=== PATIENT | male | born 1955 | race Caucasian/White ===

== ENCOUNTER 2016-05-02 19:06 | Inpatient (IN) | payer SELFPAY ==
[2016-05-02] VITALS (10 sets, daily range): BP systolic 112–187; BP diastolic 67–95; PULSE 81–152; RESP 14–17; O2SAT 96–100
[~2016-05-02] VITALS: Ht 186.7 cm; Wt 105.6 kg
[~2016-05-02 19:06] MED LIST: AMLO2.5T PO; CLOP75TA3 PO; METO25TA6 PO; MULT-1073 PO; SIMV20TA4 PO
[2016-05-02] MEDS ORDERED: Diltiazem 5 mg/mL 5 mL Inj ONE (19:28)
[2016-05-02] MEDS ORDERED: Diltiazem 5 mg/mL 5 mL Inj IVPUSH ONE (19:35)
[2016-05-02] MEDS: Diltiazem 5 mg/mL 5 mL Inj IVPUSH PRN ×3 (19:43→21:06)
[2016-05-02] MEDS: Diltiazem Inj 125 MG in 0.9% Sodium Chloride 100 ML, Pharmacy To Mix 1 EA IV SCH (19:51)
--- NOTE | 2016-05-02 19:54 | DRSVH ---
PROCEDURE: X-RAY CHEST ONE VIEW, PORTABLE ([id number]) INDICATIONS: CP TECHNIQUE: One view of the chest was acquired. COMPARISON: None. FINDINGS: Surgical changes and devices: None. Lungs and pleura: No pleural effusions or pneumothorax. Lungs are clear. Mediastinum: Mediastinal contours appear normal. Heart size is normal. Bones and chest wall: No suspicious bony lesions. Overlying soft tissues appear unremarkable. IMPRESSION: No acute process. Dictated by: Marie Rogers M.D. on 05/02/2016 at 19:52 Approved by: Marie Rogers M.D. on 05/02/2016 at 19:52
[2016-05-02 19:57] LABS: BASOPHILS % (AUTO) 0.4 % (0-3); EOSINOPHILS % (AUTO) 1.2 % (0-5); Mean Corpuscular Hemoglobin 20.6 pg (27.0-35.0); Mean Corpuscular Volume 69.6 fL (81-100); NEUTROPHILS % (AUTO) 62.2 % (40-74); Platelet Count 507 bil/L (150-400)
[2016-05-02 20:28] LABS: TROPONIN T < 0.010 ug/L (0.0-0.011)
[2016-05-02 20:34] LABS: Magnesium 2.1 mg/dL (1.6-2.6)
[2016-05-02] MEDS ORDERED: ASPI-973 PO (20:46)
[2016-05-02] MEDS ORDERED: AMLO5TAB2 PO (20:46)
[2016-05-02] MEDS ORDERED: METO50TA3 PO (20:46)
--- NOTE | 2016-05-02 20:46 | ED.REPORT ---
HPI-Chest Pain 40 and Over Date of Service May 02, 2016 ED Provider: Lew Chadwick DO A 60 year old male with medical history including hypertension, hyperlipidemia, peripheral vascular disease, and CAD s/p cardiac catheterization (2014) presents to the ED with mid chest pain onset 1700 today. Associated symptoms include bilateral arm numbness (L>R), diaphoresis, and mild shortness of breath. He took ASA at onset but the pain did not resolve. In triage he was found to have a rapid irregularly irregular heart rhythm and was immediately brought back to a room. The patient ran out of his metoprolol two days ago and has not taken it since. Nursing Notes Stated Complaint: HEART PROBLEMS Chief Complaint: Chest Pain Nursing Notes Reviewed: Yes Allergies: Coded Allergies: No Known Allergies (Unverified , 05/02/16) Scheduled Amlodipine (Amlodipine) 5 Mg Tablet 5 MG PO DAILY Aspirin (Aspirin) 81 Mg Tablet 81 MG PO DAILY Metoprolol Tartrate (Metoprolol Tartrate) 50 Mg Tablet 50 MG PO BID Multivits-Min/FA/Lycopene/Lut (Centrum Silver Tablet) 1 Each Tablet 1 EACH PO DAILY Simvastatin (Simvastatin) 20 Mg Tablet 60 MG PO HS General Time Seen by MD: 19:21 Chief Complaint Chest pain Hx Obtained From: Patient Arrived By: Walk-in Sudden in Onset?: Yes Onset Occurred: 1 - 4 hours ago Symptom Duration: Since onset Location: : Chest left: Chest right Quality: Painful Severity: Current: Moderate Severity: Maximum: Moderate Associated with: Reports: Diaphoresis, Numbness/Tingling, Shortness of Breath, Denies: Fever Pertinent Negative: Relieved by nothing Context Related History: Reports: Acute coronary syndrome, Hypertension Recent Healthcare: No recent doctor visit Similar Sx Previous: Yes Past Medical History Past Medical History Right inguinal hernia Hypertension Hyperlipidemia "clot in heart" - the pt was placed on Plavix CAD Peripheral vascular disease Liver disease Fracture of ankle, wrist, collar bone Past Surgical History Cardiac catheter 2014 Family History noncontributory Smoking History Current Every Day Smoker Social History Alcohol Use: Denies alcohol use Other Social History: Local resident Ambulatory Status Independent Review of Systems Review of Systems Note: + rapid irregularly irregular heart rhythm Constitutional: Denies: Fever Respiratory: Reports: Shortness of breath (Mild) Cardiovascular: Reports: Chest pain Skin: Reports Diaphoresis Neurologic: Reports: Numbness (Bilateral arms L>R) Complete sys rev & neg: except as marked. Physical Exam Initial Vital Signs Vital Signs (First) Date Time Temp Pulse Resp B/P Pulse Ox O2 Delivery O2 Flow Rate FiO2 05/02/16 19:08 36.8 116 16 187/95 100 Room Air Initial VS: Reviewed Head / Eyes: Atraumatic, Normocephalic ENT: Conjunctiva normal, No scleral icterus Neck: Supple, Full range of motion Skin: Warm, Dry, No cyanosis Neurologic: Alert, Oriented, Nonfocal Psychiatric: Mood/affect normal, Behavior normal, Normal thought content General/Constitutional: Awake, Alert Respiratory / Chest: Breath sounds NL, Breath sounds = bilat, No respiratory distress Cardiovascular: Heart sounds NL Heart Rate / Rhythm: Positive: Irreg irregular rhythm, Tachycardia Abdomen: Soft, Non-tender Lower Extremity / Pelvis / MS: Inspection NL, No edema Interpretation & Diagnostics Lab Results Interpretation Result Diagram: 05/02/16194505/02/161945 Test 05/02/16 19:46 05/02/16 20:41 White Blood Count 9.5th/mm3 (3.8-10.1) Red Blood Count 4.47mil/mm3 (4.40-5.80) Hemoglobin 9.2g/dL (13.8-17.2) Hematocrit 31.1% (41.0-50.0) Mean Corpuscular Volume 69.6fL (81-100) Mean Corpuscular Hemoglobin 20.6pg (27.0-35.0) Mean Corpuscular Hemoglobin Concent 29.6% (32.0-37.0) Red Cell Distribution Width 16.2% (12.3-15.4) Platelet Count 507bil/L (150-400) Neutrophils (%) (Auto) 62.2% (40-74) Lymphocytes (%) (Auto) 26.0% (14-46) Monocytes (%) (Auto) 10.0% (4-12) Eosinophils (%) (Auto) 1.2% (0-5) Basophils (%) (Auto) 0.4% (0-3) Sodium Level 139mEq/L (134-144) Potassium Level 3.7mEq/L (3.5-5.2) Chloride Level 103mEq/L (97-108) Carbon Dioxide Level 21mmol/L (18-29) Blood Urea Nitrogen 20mg/dL (6-24) Creatinine 0.94mg/dL (0.76-1.27) Estimat Glomerular Filtration Rate 87mL/min (>59) Glucose Level 161mg/dL (60-99) Calcium Level 9.4mg/dL (8.5-10.1) Magnesium Level 2.1mg/dL (1.6-2.6) Total Bilirubin 0.2mg/dL (0.0-1.2) Aspartate Amino Transf (AST/SGOT) 20U/L (0-50) Alanine Aminotransferase (ALT/SGPT) 16U/L (0-44) Alkaline Phosphatase 67U/L (25-160) Troponin T < 0.010ug/L (0.0-0.011) Total Protein 7.0g/dL (6.4-8.4) Albumin 4.0g/dL (3.4-5.0) Thyroid Stimulating Hormone (TSH) 2.020uIU/mL (0.450-4.500) Hold Choi Top Tube Received (Received) Hold Urine Received (Received) Pulse Oximetry Interpretation Pulse Oximetry: Pulse Ox normal (96%), On room air ECG Interpretation ECG Interpretation: Atrial fibrillation rate 151 Posterior infarct, recent Time: 19:27 Interpreted by: ED physician ECG Interpretation: Atrial fibrillation rate 113 Abnormal R-wave progression, early transition Time: 21:46 Interpreted by: ED physician Rhythm Strip Interpretation : Rhythm Strip Interpretation: Narrow complex irregularly irregular rhythm, tachycardic at 160 Time: 19:20 Rhythm Strip Interpretation: Interpreted by me X-Ray Chest Interpretation Chest Xray Interpretation: IMPRESSION: No acute process. Dictated by: Marie Rogers M.D. on 05/02/2016 at 19:52 View: Portable, 1 view Interpretation / Wet Read by: Interpret - Radiologist Re-Eval/Medical Decision Med Decision/Clinical Course 60-year-old male presents in atrial fibrillation with rapid ventricular response. Evidently he was at work today when he first felt ill. He could feel his heart pounding and this led to an ache in his chest and his arm started to tingle. He took some aspirin and tried to shake it off however the symptoms persisted. He took his pulse and it felt irregular and that prompted him to be seen. He does not have a history of atrial fibrillation. He does not have a history of pulmonary embolism. He does not have a history of aortic dissection. He does have coronary artery disease, hypertension and dyslipidemia. No stroke. Awake alert in moderate distress due to the rapid irregular pulse. His pulse was roughly 160-170. This was causing significant discomfort. He was vitally stable however. IV Cardizem followed by Cardizem drip infused. Heart rate came down to 110. He was given his oral dose of evening metoprolol. His CHADS@VASC score is commensurate with anticoagulation. Will be managed by the hospitalist service. Serial EKGs confirmed A. fib without any evidence of acute myocardial infarction. Her troponin was negative. Chest x-ray was normal without evidence of dissection. Pulmonary emboli felt to be less likely. He did not have any shortness of breath. He has not been hypoxic. He has no signs or symptoms of DVT. The differential diagnosis of new onset atrial fibrillation is broad and will be addressed by the hospitalist service on inpatient basis. Patient was admitted in stable condition. Source of Hx: Old records Time of Eval: 20:06 Patient Status: Condition improved Re-Evaluation/Progress Note: Patient rechecked. Time of Eval: 20:34 Patient Status: Condition improved Re-Evaluation/Progress Note: Patient rechecked. Discussed patient's case with his . Time of Eval: 21:01 Patient Status: Condition improved Re-Evaluation/Progress Note: Discussed with patient x-ray results, diagnosis, and plan for admit. Patient agrees with plan for care and all questions were addressed. Time of Eval: 21:38 Re-Evaluation/Progress Note: Patient rechecked. Consultation : Referral / Consult Name: Abrahan Perdomo MD Consulted With: Hospitalist Call Returned at: 21:06 Lotus Notes Administrator: Agrees with eval, Agrees with plan, Accepts admit Counseled Regarding: Diagnosis, Need for admission Discharge & Departure Primary Impression: Atrial fibrillation with rapid ventricular response Disposition: ADMITTED TO HOSPITAL Discharge Condition All VS Reviewed: Yes Condition: Stable Referrals: NOPCP (PCP) Crit Care Except Billable Proc Time Spent: 30-74 minutes Services Performed: Patient management by me, Time spent at bedside, Reviewing test results, Reviewing imaging, Discussing patient care, Documentation in record, Time with fam/surrogate Scribe Attestation Portions of this note were transcribed by Haley Reza. I, Dr. Chadwick, personally performed the history, physical exam, and medical decision-making; I reviewed and confirmed the accuracy of the information in the transcribed note. Signed by: Giuseppe Griggs, 05/02/2016, 23:00 Lew Chadwick DO May 02, 2016 20:46 HALEY REZA May 02, 2016 21:16
[2016-05-02] MEDS ORDERED: Alum-Mag Hydrox-Simeth 30 mL Suspension PO PRN (21:15)
[2016-05-02] MEDS ORDERED: Polyethylene Glycol (PEG) 17 Gm Powder PO PRN (21:15)
[2016-05-02] MEDS ORDERED: Ondansetron 2 mg/mL 2 mL Inj IVPUSH PRN (21:15)
[2016-05-02] MEDS: 0.9% Sodium Chloride 1,000 ML IV SCH (22:13)
[2016-05-02 22:49] LABS: INR 0.9 ratio
--- NOTE | 2016-05-02 23:09 | PCM.HPMED ---
Subjective Date of Service May 02, 2016 Primary Provider: Admitting Physician: Abrahan Perdomo MD Primary Care Physician: Jose Attending Physician: Abrahan Perdomo MD Chief Complaint: Chest Pain History of Present Illness: Mr. Alaniz is a 60 year old male with a history of hypertension, hyperlipidemia, PVD, CAD with cath in 2014 who presented to the ED with substernal chest pain that occurred during work earlier today. He reports feeling diaphoretic with numbness radiating down both arms, and shortness of breath that improved after 45 minutes after resting and taking an Aspirin. He denies any associated lightheadedness, SOB, palpitations, N/V, and denies any history of thyroid disease. He reports that he has been having some intermittent chest pain 2-3 months ago, but states that his Stone Layer only doubled his Metoprolol and did not assess it further. Since March, he has been chest pain free until today. He reports he had a flu like illness that began 1 month ago and lasted 2- 3 weeks. He states his symptoms have since resolved and denies any fevers or cough. He also reports that he ran out of his Metoprolol 2 days ago. His Stone Layer is Dr. Carlson in [place]. At the ED, he was noted to be in Atrial fibrillation with rate in the 160s. He was started on a Diltiazem gtt for rate control and his symptoms resolved. Of note, patient reports that he has been sober and clean for the past 10 years. He reports that he was a very heavy drinker and used heroine and MJ daily. Review of Systems: 12 point review of system is negative, except as stated in HPI. 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 HEENT - PERRLA, EOMI. Membranes pink and moist. Neck - Supple without tenderness, full ROM. Cardiac - Irregularly irregular rhythm, tachycardic. No m/g/r, no carotid bruits. Lungs - CTAB, no w/r/r Abd - Soft, NT/ND, + BS, no masses. Extremities - No cyanosis, clubbing, edema. Normal cap refill. Neuro - A&Ox3. CN 2-12 intact. Muscle strength 5/5 in all extremities, reflexes 2/4 throughout. Psych - Normal affect, appropriate responses. Skin - Warm, dry. No rashes or bruising noted. Lab and Diagnostics Result Diagram: 05/02/16194505/02/161945 X-Rays, CTs and MRIs X-RAY CHEST ONE VIEW, PORTABLE ([id number]) IMPRESSION: No acute process. Dictated by: Marie Rogers M.D. on 05/02/2016 at 19:52 12-lead ECG 12 Lead ECG in ED Atrial fibrillation, rate 151 Posterior Infarct Assessment & Plan Mr. Alaniz is a 60 year old male with multiple CAD risk factors including HTN, HLD, PVD here for acute substernal chest pain that has since resolved. Patient is admitted for new onset Afib w/ RVR. #Atrial fibrillation with RVR, new onset, present on admission, stable Likely multifactorial, but risk factors include history of alcohol and cocaine abuse, CAD, abrupt metoprolol withdrawal, multiple cardiac risk factors , iron deficiency anemia, and recent illness Troponin negative x 1, will continue to trend Will place patient Telemetry monitoring Will continue Diltiazem gtt per protocol that was started in the ED, with goal of HR < 100 PT/INR ordered, pending; CHADSVasc score = 2, recommend anticoagulation other than his daily 81mg ASA , currently on Heparin SQ for DVT prophylaxis TSH ordered, pending ECHO in AM, NPO after midnight in anticipation of any procedures Possible cardioversion depending on what ECHO shows due to first episode and <48h duration Consult cardiology in AM #CAD s/p cath in 2014, POA Continue patient's home medications #Iron Deficiency Anemia, chronic, present on admission Patient is on iron but does not take it regularly, H/H 9. with an MCV of 69.2; denies blood loss from anywhere. Trend H/H, transfuse if drops below 7 and is symptomatic, type and screen Iron Sulfate 325mg BID #Hypertension, POA, stable Continue amlodipine 5mg, but consider switching to Lisinopril for maximal benefit Will hold Metoprolol while patient is on Diltiazem drip #Hyperlipidemia, POA, stable Will switch to Atorvastatin QHS Lipid panel pending #Hyperglycemia, POA Patient denies history of diabetes HA1c ordered #Tobacco Dependence, POA Patient reports 1 ppd since he was [age], total of 40 pack years Cessation advised Nicotine patch PRN #H/o Drug Abuse and Alcohol Abuse Cocaine and Alcohol abuse could contribute to an Cardiomyopathy Clean and Sober x 10 years Discussed with patient and he would like HIV screening Tylenol prn pain/fever Bowel Regimen prn constipation Pain Evaluation: Adequate Pain Control Attending Statement The patient was seen and examined together with Dr. Leong on 05/02 and I agree with the history, exam and plan as outlined in the note above. Patient could be a candidate for newer anticoagulation agents. I will leave it to the day team to discuss this options with the patient Anthony Leong DO May 02, 2016 23:09 Abrahan Perdomo MD May 03, 2016 01:26
[2016-05-03] VITALS (12 sets, daily range): BP systolic 95–135; BP diastolic 64–87; PULSE 64–112; RESP 16; O2SAT 94–99
--- NOTE | 2016-05-03 00:47 | NUR ---
ADMIT NOTE Pt arrived to [facility] 3001 approx 2200, pt alert and oriented. Pt able to ambulate, slow, somewhat unsteady. Pt arrived w/ Cardizem gtt infusing. IVF administered. Resident/Admitting MDs arrived to assess pt. Pt denies pain at this time. Pt placed on remote telemetry via MP30 monitor, layout technician notified. Pt watched admit welcome DVD. Med rec completed in ER. Frequent VS being obtained. Pt resting comfortably in bed. Continue to monitor. Call light in reach. Intentional rounding.
--- NOTE | 2016-05-03 03:35 | NUR ---
TELEMETRY Approx 0300, pt converted to SR from A.Fib, per cv tech. HR 60s. BPs stable. Pt sleeping. Cardizem gtt decreased to 10mg/hr from 15mg/hr approx 0330. notified of rhythm change, orders rec'd to wean pt off of Cardizem gtt. Continue to monitor. Addendum: 05/03/16 at 043 by CECIL BOB RN At 0430, Cardizem gtt decreased to 5mg/hr, as VSS, pt remains in SR. Continue to monitor. Addendum: 05/03/16 at 0604 by CECIL BOB RN Approx 529, Cardizem gtt stopped. Discontinued from EMAR. Pt VSS. Continue to monitor.
[2016-05-03] MEDS: Diltiazem Inj 125 MG in 0.9% Sodium Chloride 100 ML, Pharmacy To Mix 1 EA IV SCH (04:26)
[2016-05-03 05:53] LABS: BASOPHILS % (AUTO) 0.4 % (0-3); EOSINOPHILS % (AUTO) 1.8 % (0-5); MONOCYTES % (AUTO) 12.4 % (4-12); Mean Corpuscular Hemoglobin 20.6 pg (27.0-35.0); Mean Corpuscular Volume 70.3 fL (81-100); NEUTROPHILS % (AUTO) 58.3 % (40-74); Platelet Count 490 bil/L (150-400)
[2016-05-03] MEDS: 0.9% Sodium Chloride 1,000 ML IV SCH ×2 (07:12→08:29)
[2016-05-03] MEDS: Heparin 5,000 Unit/mL Inj SUBQ SCH ×2 (08:31→17:00)
--- NOTE | 2016-05-03 13:25 | DRSVH ---
[facility] [address] [place] [address] Echocardiogram Report Name: ABBY SAL TStudy Juan e: 05/03/2016 Height: 73.5 in Hospital Exam Location: [facility] Weight: 232 lb Gender: Male BSA: 2.3 m2 : 1955 Age: 60 yrs BP: 115/78 mm Hg Reason For Study: Atrial fibrillation Ordering Physician: MARIANNE MENDOSA Performed By: Sophia Zheng Referring Physician: MARIANNE MENDOSA Interpretation Summary The left ventricle is normal in size. Left ventricular systolic function is normal. The ejection fraction is estimated to be 55-60%. There are no focal wall motion abnormalities. Assessment of diastolic parameters indicates a relaxation abnormality of the left ventricle, consistent with normal filling pressures. The right ventricle is normal in size and function. The right ventricular systolic pressure is estimated at 31 mmHg assuming a right atrial pressure of 3 mm Hg. The left atrial size is normal. Right atrial size is normal. There is no significant valvular heart disease. The aortic root is normal size. Procedure: A two-dimensional transthoracic echocardiogram with color flow and Doppler was performed. The study quality was technically adequate. There is no prior echocardiogram noted for this patient. The patient was in normal sinus rhythm during the exam. Left Ventricle: The left ventricle is normal in size. There is normal left ventricular wall thickness. Left ventricular systolic function is normal. The ejection fraction is estimated to be 55-60%. There are no focal wall motion abnormalities. Spectral Doppler of the mitral inflow yields an E/A ratio that is between 0.8 and 1.5. Assessment of diastolic parameters indicates a relaxation abnormality of the left ventricle, consistent with normal filling pressures. Right Ventricle: The right ventricle is normal in size and function. Atria: The left atrial size is normal. Right atrial size is normal. The interatrial septum is intact with no evidence for an atrial septal defect. Mitral Valve: The mitral valve leaflets appear normal. There is no evidence of stenosis, fluttering, or prolapse. There is trace mitral regurgitation. Aortic Valve: The aortic valve is trileaflet. The aortic valve opens well. There is mild aortic valve sclerosis. There is trace aortic regurgitation. Tricuspid Valve: The tricuspid valve is normal. There is trace tricuspid regurgitation. The right ventricular systolic pressure is estimated at 31 mmHg assuming a right atrial pressure of 3 mm Hg. Pulmonic Valve: The pulmonic valve leaflets are thin and pliable; valve motion is normal. There is trace pulmonic regurgitation. There is no significant valvular heart disease. Great Vessels: The aortic root is normal size. The ascending aorta is at the upper limits of normal in size. The aortic arch is at the upper limits of normal in size. The pulmonary artery is normal size. The IVC is of normal diameter and collapses greater than 50% with a sniff. This suggests a low right atrial pressure of 3 mm Hg. Pericardium/ Pleura There is no pericardial effusion. There is no pleural effusion. MMode/2D Measurements & Calculations LVIDd: 5.7 cm RA long axis LVOT diam: 2.1 cm LVIDs: 4.0 cm LA A2 area: 20.8 cm AoV Opening FS: 29.6 % LA A4 area: 21.2 cm RA area EPSS: 0.84 cm LA length (vol) Ao root diam IVSd: 0.92 cm : 18.2 cm LVPWd: 0.82 cm LA vol: 72.7 ml RA vol asc Aorta Diam LA vol index : 58.7 ml RA Ao Arch Diam (Prox : 25.5 mm2 Trans): 2.8 cm IVC diam: 1.7 cm LV joseph. diameter/BSA LV sys. diameter/BSA TAPSE: 2.3 cm (cm/m^2): 2.5 (cm/m^2): 1.8 Doppler Measurements & Calculations Ao V2 max MV E max memo MV E/A: 0.93 TR max memo : 174.5 cm/sec : 94.5 cm/sec Med Peak E' Memo : 266.2 cm/sec Ao max P.2 mmHg MV A max memo TR max PG Ao mean P.6 mmHg : 101.5 cm/sec E/E' med: 7.8 : 28.4 mmHg LVOT Max Memo Lat Peak E' Memo PA V2 max : 122.4 cm/sec : 102.0 cm/sec E/E' lat: 7.2 PA mean PG HIEN(I,D): 2.6 cm E/e' average: 7.5 : 2.4 mmHg sev ratio: 0.73 MV A dur: 0.13 sec MV dec time: 0.23 sec Ao V2 mean LV V1 max PG PA V2 mean : 120.7 cm/sec : 75.0 cm/sec Ao V2 VTI: 36.6 cm LV V1 VTI: 26.9 cmPA pr(Accel) : 25.8 mmHg HIEN(V,D): 2.5 cm2 HIEN indexed to BSA (cm^2/m^2): 1.1 Reading Physician:PM
--- NOTE | 2016-05-03 13:43 | NUR ---
Social Work-initial assessment: Data:See initial assessment. Pt is 60 y/o male who was admitted on 05/02/16 for AFIB per H&P. Pt does not have PCP or insurance. SW met with pt at bedside discuss discharge planning, SW role explained. Pt is alert and oriented x3. Pt resides at home with his where he remains independent with ADLs. Pt does not use any DME and drives. Pt has no HH or SNF history. Pt has no dredging inspector care insurance or VA benefits. SW discuss DPOA/ advanced directive, pt has never completed this and is not interested in information. SW discussed pt's lack of PCP and insurance. Pt states he ran out of money this month and let his insurance lapse. Pt plans on getting in touch with insurance once he is discharge. Pt declines any assistance with this. Pt also does not have PCP and is declining resources. SW provided pt with cherelle care application. Pt states his will provide transport home at discharge. SW provided pt with phone number and plan on white board in room. No anticipated discharge needs. SW will continue to follow if needs arise. Assessment:Pt who is independent at baseline. Plan:Pt to discharge home when medically stable via POV. Pt let his insurance lapse, he is working on getting this back in place. Pt declining any assistance or PCP resources. SW provided pt with cherelle care application.No anticipated discharge needs. SW will continue to follow if needs arise. TIAN Landaverde
--- NOTE | 2016-05-03 16:27 | NUR ---
TELE PT remains in NS in 60-70's, no reoccurrences of AFib, no ectopy per tele monitor. PT VS stable, been resting most of the day, waiting for cardiology consult. Pt denies SOB, denies chest pain. Pt up at bedside with short walks to restroom. Encouraged pt to deep breathe, turn and cough. Pt A & O x 3, call light at bedside, bed in low position. Pt anxious to go home. Re-assured pt in regards to consult, pt agreeable to plan.
--- NOTE | 2016-05-03 19:06 | PCM.CHPCAR ---
Consult Subjective Date of service May 03, 2016 Date of admit May 02, 2016 at 21:32 Provider Requesting Consult Requesting Provider: Anthony Leong DO Primary Care Physician Primary Care Provider: Jose Chief Complaint Chest pain History of Present Illness This is a 60-year-old male with history of coronary disease as per the patient. He states that back in June 2014 he proceeded with a nuclear stress test at [facility] which I do not have access to the report. As per the patient he "flunked the test" it was taken immediately to the emergency room. Apparently he did not have insurance he deferred a cardiac catheterization until September 2014. According to the patient he had a thrombus and was placed on Plavix. He did not receive any balloon angioplasty or stent as per the patient. The patient sees Dr. Carlson at [facility]. The patient has had complaints of recent episodes of chest discomfort. His metoprolol was increased to 50 mg twice a day. Apparently the patient recently had a upper respiratory infection for several weeks. The patient was at work yesterday started to have significant chest pressure. The patient took some aspirin and nitroglycerin and eventually after 45 minutes of resting his chest pain improved but he was still night at baseline. He decided to present to the emergency room at [facility]. In the emergency room his EKG revealed rapid atrial fibrillation with a heart rate about 150 bpm with some minor ST depressions. The patient was placed on intravenous diltiazem and eventually converted back to sinus rhythm around 3:30 this morning. Since then he has not had any recurrence episodes of chest pain and he feels pretty much back to his baseline. His severe troponins were negative. His EKG now shows normal sinus rhythm with normal ST segments. Review of Systems General: Denies: Energy Fatigue Ears, Nose, Mouth & Throat: Denies: Any hearing loss Epistaxis or hoarseness Respiratory: Denies: Orthopnea or PND Significant dyspnea Cardiovascular: Reports: Chest Discomfort Gastrointestinal: Denies: Ulcers or GI blood loss Genitourinary: Denies: Prostate symptoms Urinary symptoms Musculoskeletal: Denies: Significant myalgias Neurological: Denies: Any history of stroke/TIA symptoms Psychiatric: Denies: Anxiety Depression Endocrine: Denies: Heat or cold intolerance Integumentary: Denies: Any change in hair or nails PMH Past Medical History Hypertension Hyperlipidemia PVD CAD s/p cath 2014 Iron Deficiency Anemia Tobacco Dependence Liver Disease 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) Bedside Blood Glucose: 109 Scheduled Amlodipine (Amlodipine) 5 Mg Tablet 5 MG PO DAILY (Reported) Aspirin (Aspirin) 81 Mg Tablet 81 MG PO DAILY (Reported) Metoprolol Tartrate (Metoprolol Tartrate) 50 Mg Tablet 50 MG PO BID (Reported) Multivits-Min/FA/Lycopene/Lut (Centrum Silver Tablet) 1 Each Tablet 1 EACH PO DAILY (Reported) Simvastatin (Simvastatin) 20 Mg Tablet 60 MG PO HS (Reported) Discontinued Medications Amlodipine (Amlodipine) 2.5 Mg Tablet 2.5 MG PO DAILY (Reported) Clopidogrel Bisulfate (Plavix) 75 Mg Tablet 75 MG PO DAILY (Reported) Metoprolol Tartrate (Metoprolol Tartrate) 25 Mg Tablet 25 MG PO BID (Reported) Current Inpatient Medications Current Medications Diltiazem HCl/ Sodium Chloride/ Miscellaneous 125 ml @ 0 mls/hr Q0M IV Last administered on 05/03/16 04:26; Admin Dose 5 MLS/HR; Start 05/02/16 at 19:35; Stop 05/03/16 at 05:41; Status DC Diltiazem HCl 10 mg 10 mg Q15M PRN IVPUSH Last administered on 05/02/16 21:06 ; Admin Dose 10 MG; Start 05/02/16 at 19:35 Sodium Chloride 1,000 ml @ 100 mls/hr Q10H IV Last administered on 05/03/16 08 :29; Admin Dose 100 MLS/HR; Start 05/02/16 at 21:12 Al Hydrox/Mg Hydrox/Simethicone 30 ml Q6H PRN PO; Start 05/02/16 at 21:15 Ondansetron HCl 4 to 8 mg Q4H PRN IVPUSH; Start 05/02/16 at 21:15 Senna 17.2 mg BID PRN PO; Start 05/02/16 at 21:15 Polyethylene Glycol 17 gm DAILY PRN PO; Start 05/02/16 at 21:15 Acetaminophen 650 mg Q4H PRN PO; Start 05/02/16 at 21:15 Amlodipine Besylate 5 mg DAILY PO Last administered on 05/03/16 08:19; Admin Dose 5 MG; Start 05/03/16 at 08:30 Aspirin 81 mg DAILY PO Last administered on 05/03/16 08:20; Admin Dose 81 MG; Start 05/03/16 at 08:30 Atorvastatin Calcium 40 mg HS PO; Start 05/03/16 at 21:00 Heparin Sodium (Porcine) 5,000 unit Q8 SUBQ Last administered on 05/03/16 17:00 ; Admin Dose 5,000 UNIT; Start 05/03/16 at 08:30 Metoprolol Tartrate 50 mg BID PO Last administered on 05/03/16 08:19; Admin Dose 50 MG; Start 05/03/16 at 08:30 Allergies: Coded Allergies: No Known Allergies (Unverified , 05/02/16) Family History Family History CHF Social History Occupation: Cook Hx Alcohol Use: Yes (Hx of "12-16 beers/night, whiskey, sober 10 years")Hx Substance Use: Yes ("Cocaine, sober 10 years", denies use of needles)Hx Tobacco Use: Yes (1 ppd for 40 years) Smoking Status: Current Every Day Smoker (1 ppd) Living Arrangement: with Family Exam Vital Signs Vital Sign - Last Date Time Temp Pulse Resp B/P Pulse Ox O2 Delivery O2 Flow Rate FiO2 05/03/16 17:07 36.9 70 16 135/85 99 Room Air Intake and Output 05/02/16 05/02/16 05/03/16 Cumulative From/Thru 15:00 23:00 07:00 05/02/16 19:08 - 05/03/16 06:39 Intake Total 1290 ml 1290 ml Output Total 350 ml 350 ml Balance 940 ml 940 ml Intake Oral 560 ml 560 ml IV Total 730 ml 730 ml Output Urine Total 350 ml 350 ml # Voids 1 1 # Bowel Movements 1 1 Objective GENERAL: This is a well-nourished, well-developed patient, in no apparent distress. HEAD: Atraumatic. Normocephalic. No temporal or scalp tenderness. EYES: Pupils equal round and reactive. Extraocular motions intact. No scleral icterus. No injection or drainage. ENT: Nose without bleeding, purulent drainage or septal hematoma. Throat without erythema, tonsillar hypertrophy or exudate. Uvula midline. Airway patent. NECK: Trachea midline. No JVD or lymphadenopathy. Supple, nontender, no meningeal signs. CARDIOVASCULAR: Regular rate and rhythm without murmurs, gallops, or rubs. RESPIRATORY: Clear to auscultation. Breath sounds equal bilaterally. No wheezes , rales, or rhonchi. GASTROINTESTINAL: Abdomen soft, non-tender, nondistended. No hepato-splenomegaly , or palpable masses. No guarding. EXTREMITIES: No clubbing, cyanosis, or edema. No joint tenderness, effusion, or edema noted. No calf tenderness. Negative Homans sign bilaterally. BACK: Nontender without deformity or crepitance. No flank tenderness. Lab and Diagnostics Labs CBC Test 05/03/16 05:12 White Blood Count 7.2th/mm3 (3.8-10.1) Red Blood Count 4.08mil/mm3 (4.40-5.80) Hemoglobin 8.4g/dL (13.8-17.2) Hematocrit 28.7% (41.0-50.0) Mean Corpuscular Volume 70.3fL (81-100) Mean Corpuscular Hemoglobin 20.6pg (27.0-35.0) Mean Corpuscular Hemoglobin Concent 29.3% (32.0-37.0) Red Cell Distribution Width 16.3% (12.3-15.4) Platelet Count 490bil/L (150-400) Neutrophils (%) (Auto) 58.3% (40-74) Lymphocytes (%) (Auto) 27.0% (14-46) Monocytes (%) (Auto) 12.4% (4-12) Eosinophils (%) (Auto) 1.8% (0-5) Basophils (%) (Auto) 0.4% (0-3) CMP Test 05/02/16 19:46 05/03/16 05:12 05/03/16 08:30 Magnesium Level 2.1mg/dL Total Bilirubin 0.2mg/dL Aspartate Amino Transf (AST/SGOT) 20U/L Alanine Aminotransferase (ALT/SGPT) 16U/L Alkaline Phosphatase 67U/L Total Protein 7.0g/dL Albumin 4.0g/dL Thyroid Stimulating Hormone (TSH) 2.020uIU/mL Hold Choi Top Tube Received Sodium Level 142mEq/L Potassium Level 4.0mEq/L Chloride Level 108mEq/L Carbon Dioxide Level 25mmol/L Blood Urea Nitrogen 20mg/dL Creatinine 0.71mg/dL Estimat Glomerular Filtration Rate 121mL/min Glucose Level 113mg/dL Calcium Level 8.8mg/dL Triglycerides Level 446mg/dL Cholesterol Level 147mg/dL LDL Cholesterol, Calculated 29.800mg/dL VLDL Cholesterol 89.200mg/dL HDL Cholesterol 28mg/dL Cholesterol/HDL Ratio 5.25 Troponin T < 0.010ug/L Result Diagram: 05/03/1651105/03/16511 Additional Diagnostics: Echocardiogram Report Name: ABBY SAL TStudy Juan e: 05/03/2016 Height: 73.5 in Hospital Exam Location: [facility] Weight: 232 lb Gender: Male BSA: 2.3 m2 : 1955 Age: 60 yrs BP: 115/78 mm Hg Reason For Study: Atrial fibrillation Ordering Physician: MARIANNE MENDOSA Performed By: Sophia Zheng Referring Physician: MARIANNE MENDOSA Interpretation Summary The left ventricle is normal in size. Left ventricular systolic function is normal. The ejection fraction is estimated to be 55-60%. There are no focal wall motion abnormalities. Assessment of diastolic parameters indicates a relaxation abnormality of the left ventricle, consistent with normal filling pressures. The right ventricle is normal in size and function. The right ventricular systolic pressure is estimated at 31 mmHg assuming a right atrial pressure of 3 mm Hg. The left atrial size is normal. Right atrial size is normal. There is no significant valvular heart disease. The aortic root is normal size. Assessment & Plan Problems: (1) Atrial fibrillation with rapid ventricular response Plan: Resolved. The patient has been started back on metoprolol tartrate 50 mg twice a day. In light of his anemia I am a little bit concerned about putting him on anticoagulation. I think for now I would recommend aspirin and Plavix which he currently still has at home. The patient will need to discuss with Dr. Carlson about long-term anticoagulation but may consider GI workup prior to starting anticoagulation given his history of anemia. Supposedly his anemia is secondary to iron deficiency but apparently he is not compliant with ferrous sulfate medication. I suspect that his chest pain was most likely secondary to his rapid atrial fibrillation. His history does not indicate that he is currently having acute coronary syndrome. His troponins have been negative and his EKG abnormalities have resolved. Patient states that he feels pretty much back to his baseline. I will like to obtain his coronary angiogram report from [facility] and if his coronaries are indeed normal or has very minimal coronary artery disease, then I think the patient may be discharged home. However if there is moderate to severe disease than patient might benefit from a repeat ischemic evaluation. Williamna will be back on cardiology service tomorrow morning. We discussed briefly about long- term management for his atrial fibrillation. Status: Resolved ICD Code: I48.91 (2) CAD (coronary artery disease) Qualifiers: Coronary Disease-Associated Artery/Lesion type: [place] artery [place] vs. transplanted heart: [place] heart Associated angina: with other forms of angina Qualified Code: I25.118 - Atherosclerotic heart disease of [place] coronary artery with other forms of angina pectoris Plan: Patient states that he only had a thrombus and all he needed Plavix/ASA after he had his coronary angiogram in September 2014. I think it would be prudent to obtain his cath report prior to discharging the patient. Nevertheless I suspect that his symptoms were exacerbated by his rapid atrial fibrillation which is apparently new onset for him. Status: Acute ICD Code: I25.10 (3) Anemia Qualifiers: Anemia type: iron deficiency Iron deficiency anemia type: other iron deficiency Qualified Code: D50.8 - Other iron deficiency anemias Plan: It is not a surprise that he did have chest pain with his atrial fibrillation compounded by his chronic anemia. Patient needs to be more compliant with his iron supplementation. Consider GI workup if not completed in the past since the patient might need long-term anticoagulation. Based on the fact that he has history of peripheral vascular disease and possible hypertension, he has a high risk for cardiac embolic stroke and oral anticoagulation is recommended. Status: Chronic ICD Code: D64.9 Pain Evaluation: Adequate Pain Control Resuscitation Status: CPR: Attempt Resuscitation Time spent 80 minutes Copies to: Guido Carlson MD, Oscar J MD May 03, 2016 19:06
--- NOTE | 2016-05-03 21:55 | PCM.PNMED ---
Subjective Date of Service May 03, 2016 Subjective Patient has no further chest pain. He is feeling much better and has no new complaints. Exam Vital Signs Vital Sign - Last Date Time Temp Pulse Resp B/P Pulse Ox O2 Delivery O2 Flow Rate FiO2 05/03/16 20:34 36.7 73 16 132/87 98 Room Air Intake and Output 05/02/16 05/02/16 05/03/16 Cumulative From/Thru 15:00 23:00 07:00 05/02/16 19:08 - 05/03/16 06:39 Intake Total 1290 ml 1290 ml Output Total 350 ml 350 ml Balance 940 ml 940 ml Intake Oral 560 ml 560 ml IV Total 730 ml 730 ml Output Urine Total 350 ml 350 ml # Voids 1 1 # Bowel Movements 1 1 Exam General: Patient is in no apparent distress. He is resting comfortably supine in bed. HEENT: Head is atraumatic normocephalic. Eyes: Pupils are equally round and reactive to light and accommodation. Extraocular muscles are intact. Sclera are white anicteric. Subconjunctival mucosa is pink. Ears and nose are unremarkable. Oropharynx: There is no mucosal lesions, there is no thrush, there is no pharyngitis. Neck: Is supple, there are no nodes, or masses or tenderness. Chest: Is clear to auscultation and percussion. There are no rales, rhonchi, wheezes or rubs. Heart: Rate, rhythm is regular. There is no murmur, rub or gallop. Abdomen: Good bowel sounds are present. Abdomen is soft, nontender, no organomegaly or masses were appreciated. Extremities: Are symmetrical and well perfused. There is no edema, there is no cellulitis, no rash. Neurologic: There are no focal neurological deficits. Cranial nerves II through XII are intact. There are no sensory or motor deficits. Psychiatric: Patients mood is calm and shows no sign of agitation. Genital: Deferred Rectal: Deferred Lab and Diagnostics Result Diagram: 05/03/16 0512 05/03/16 0512 X-Rays, CTs and MRIs X-RAY CHEST ONE VIEW, PORTABLE ([id number]) IMPRESSION: No acute process. Dictated by: Marie Rogers M.D. on 05/02/2016 at 19:52 12-lead ECG 12 Lead ECG in ED Atrial fibrillation, rate 151 Posterior Infarct Cardiac Echo Impressions Echocardiogram Report Name: ABBY SAL TStudy Juan e: 05/03/2016 Height: 73.5 in Hospital Exam Location: [facility] Weight: 232 lb Gender: Male BSA: 2.3 m2 : 1955 Age: 60 yrs BP: 115/78 mm Hg Reason For Study: Atrial fibrillation Ordering Physician: MARIANNE MENDOSA Performed By: Sophia Zheng Referring Physician: MARIANNE MENDOSA Interpretation Summary The left ventricle is normal in size. Left ventricular systolic function is normal. The ejection fraction is estimated to be 55-60%. There are no focal wall motion abnormalities. Assessment of diastolic parameters indicates a relaxation abnormality of the left ventricle, consistent with normal filling pressures. The right ventricle is normal in size and function. The right ventricular systolic pressure is estimated at 31 mmHg assuming a right atrial pressure of 3 mm Hg. The left atrial size is normal. Right atrial size is normal. There is no significant valvular heart disease. The aortic root is normal size. Assessment & Plan Mr. Sal is a 60 year old male with multiple CAD risk factors including HTN, HLD, PVD here for acute substernal chest pain that has since resolved. Patient is admitted for new onset Afib w/ RVR. #Atrial fibrillation with RVR, new onset, present on admission, stable Likely multifactorial, but risk factors include history of alcohol and cocaine abuse, CAD, abrupt metoprolol withdrawal, multiple cardiac risk factors , iron deficiency anemia, and recent illness Troponin negative x 1, will continue to trend Will place patient Telemetry monitoring Diltiazem gtt per protocol that was started in the ED, has been discontinued PT/INR ordered, pending; CHADSVasc score = 2, recommend anticoagulation other than his daily 81mg ASA , currently on Heparin SQ for DVT prophylaxis TSH ordered, pending ECHO unremarkable Cardiology consultation obtained. Dr. Fry was kind enough to see the patient and his recommendations are as follows: "1. Atrial fibrillation with rapid ventricular response Plan: Resolved. The patient has been started back on metoprolol tartrate 50 mg twice a day. In light of his anemia I am a little bit concerned about putting him on anticoagulation. I think for now I would recommend aspirin and Plavix which he currently still has at home. The patient will need to discuss with Dr. Carlson about long-term anticoagulation but may consider GI workup prior to starting anticoagulation given his history of anemia. Supposedly his anemia is secondary to iron deficiency but apparently he is not compliant with ferrous sulfate medication. I suspect that his chest pain was most likely secondary to his rapid atrial fibrillation. His history does not indicate that he is currently having acute coronary syndrome. His troponins have been negative and his EKG abnormalities have resolved. Patient states that he feels pretty much back to his baseline. I will like to obtain his coronary angiogram report from [facility] and if his coronaries are indeed normal or has very minimal coronary artery disease, then I think the patient may be discharged home. However if there is moderate to severe disease than patient might benefit from a repeat ischemic evaluation. Dr. De León will be back on cardiology service tomorrow morning. We discussed briefly about long- term management for his atrial fibrillation." #CAD s/p cath in 2014, POA Continue patient's home medications i.e. aspirin and Plavix along with metoprolol(patient has not taken metoprolol for approximately 3 days) #Iron Deficiency Anemia, chronic, present on admission Patient is on iron but does not take it regularly, H/H 9. with an MCV of 69.2; denies blood loss from anywhere. Trend H/H, transfuse if drops below 7 and is symptomatic, type and screen Iron Sulfate 325mg BID #Hypertension, POA, stable Continue amlodipine 5mg, but consider switching to Lisinopril for maximal benefit Restart Metoprolol now that Diltiazem drip as been discontinued #Hyperlipidemia, POA, stable Will switch to Atorvastatin QHS Lipid panel pending #Hyperglycemia, POA Patient denies history of diabetes HA1c ordered #Tobacco Dependence, POA Patient reports 1 ppd since he was [age], total of 40 pack years Cessation advised Nicotine patch PRN #H/o Drug Abuse and Alcohol Abuse Cocaine and Alcohol abuse could contribute to an Cardiomyopathy Clean and Sober x 10 years Discussed with patient and he would like HIV screening and results are pending Tylenol prn pain/fever Bowel Regimen prn constipation Pain Evaluation: Adequate Pain Control VTE Prophylaxis: Sub-Q Heparin (Unfractionated) Resuscitation Status: CPR: Attempt Resuscitation Jorge LuisGustabo MD May 03, 2016:55
[2016-05-04 00:29] VITALS: BP 143/85; PULSE 75; RESP 16; O2SAT 96
[2016-05-04] MEDS: Sodium Chloride LOK Flush 10 mL Syringe IVFLUSH SCH ×2 (00:33→09:13)
[2016-05-04] MEDS: Heparin 5,000 Unit/mL Inj SUBQ SCH ×2 (00:33→09:13)
[2016-05-04 06:05] VITALS: PULSE 75
[2016-05-04 06:14] VITALS: BP 134/74; PULSE 72; RESP 16; O2SAT 98
--- NOTE | 2016-05-04 06:48 | NUR ---
PT ACTIVITY Pt has remained in room during night. Pt up to BR, tolerates activity well. Pt denies pain. Continue to monitor. Call light in reach. Intentional rounding.
[2016-05-04 07:51] LABS: BASOPHILS % (AUTO) 0.3 % (0-3); EOSINOPHILS % (AUTO) 2.5 % (0-5); MONOCYTES % (AUTO) 9.6 % (4-12); Mean Corpuscular Hemoglobin 20.3 pg (27.0-35.0); Mean Corpuscular Volume 69.6 fL (81-100); NEUTROPHILS % (AUTO) 61.6 % (40-74); Platelet Count 456 bil/L (150-400)
[2016-05-04 08:00] VITALS: PULSE 76
[2016-05-04 09:31] VITALS: BP 149/87; PULSE 73; RESP 16; O2SAT 98
--- NOTE | 2016-05-04 13:31 | PCM.DIMED ---
Discharge Instructions Date of Service May 04, 2016 Dates of Hospitalization May 02, 2016 at 21:32 Discharge Diagnosis Discharge Diagnosis Afib with RVR CAD s/p cath in 2014 HTN HLP PVD tobacco abuse hx of drug abuse Medication Instructions Pt to be discharged on aspirin 81mg and plavix 75mg along with other continued home medications Test Results echo: Interpretation Summary The left ventricle is normal in size. Left ventricular systolic function is normal. The ejection fraction is estimated to be 55-60%. There are no focal wall motion abnormalities. Assessment of diastolic parameters indicates a relaxation abnormality of the left ventricle, consistent with normal filling pressures. The right ventricle is normal in size and function. The right ventricular systolic pressure is estimated at 31 mmHg assuming a right atrial pressure of 3 mm Hg. The left atrial size is normal. Right atrial size is normal. There is no significant valvular heart disease. The aortic root is normal size. Diet Low fat, Low Sodium, Heart Healthy Activity No restrictions Call your provider Fever or Chills, Shortness of breath, Chest pain Patient Instructions Please continue aspirin 81mg, plavix 75mg and metoprolol 50mg twice daily along with Atorvastatin for cholesterol, please stop simvastatin while taking atorvastatin. Follow up with Dr. Carlson regarding anticoagulation in setting of your anemia. I recommend establishing care with a PCP, I have asked our staff to see if we can get you into the [facility] here at [facility] Follow-up plan as above Follow-up Provider: Guido Carlson MD Follow-up with PCP in: 1 week Additional Information Pt needs to establish with a PCP - have asked to consider FP residency clinic here at [facility] Danny Mensah DO May 04, 2016 13:31
[2016-05-04] MEDS ORDERED: ATOR40TA69 PO (13:32)
[2016-05-04] MEDS ORDERED: CLOP75TA28 PO (13:32)
--- NOTE | 2016-05-04 13:32 | NUR ---
Social Work: Discharge Data: Pt is on day 2 of hospitalization. EMR reviewed. D/C orders are being written by . stated at rounds pt likely to d/c today. No further d/c planning needs from [employer]. Pt previously given [employer] application for self pay insurance. [employer] will continue to follow if needs arise. Assessment: Pt who is independent at baseline. Plan: Pt will d/c home via POV today. No further d/c planning needs from [employer]. Pt previously given [employer] application for self pay insurance. [employer] will continue to follow if needs arise. TIAN Bullock
[2016-05-04] MEDS ORDERED: FERR-83 PO (13:39)
--- NOTE | 2016-05-04 13:43 | PCM.DC.MED ---
Discharge Summary Date of Service May 04, 2016 Dates of Hospitalization Date of Hospital Admission May 02, 2016 at 21:32 Date of Discharge: May 04, 2016 Providers: Admitting Physician: Marianne Mendosa MD Primary Care Physician: Jose Attending Physician: Marianne Mendosa MD Diagnosis at Time of Discharge Diagnosis at Time of Discharge Afib with RVR CAD s/p cath in 2014 HTN HLP PVD tobacco abuse hx of drug abuse Consultations Sarthak Valladares - Cardiology Procedures XRay, CTs & MRIs X-RAY CHEST ONE VIEW, PORTABLE ([id number]) IMPRESSION: No acute process. Dictated by: Marie Rogers M.D. on 05/02/2016 at 19:52 ECG 12 Lead 12 Lead ECG in ED Atrial fibrillation, rate 151 Posterior Infarct Cardiac Echo Impression Echocardiogram Report Name: ABBY SAL TStudy Juan e: 05/03/2016 Height: 73.5 in Hospital Exam Location: [facility] Weight: 232 lb Gender: Male BSA: 2.3 m2 : 1955 Age: 60 yrs BP: 115/78 mm Hg Reason For Study: Atrial fibrillation Ordering Physician: MARIANNE MENDOSA Performed By: Sophia Zheng Referring Physician: MARIANNE MENDOSA Interpretation Summary The left ventricle is normal in size. Left ventricular systolic function is normal. The ejection fraction is estimated to be 55-60%. There are no focal wall motion abnormalities. Assessment of diastolic parameters indicates a relaxation abnormality of the left ventricle, consistent with normal filling pressures. The right ventricle is normal in size and function. The right ventricular systolic pressure is estimated at 31 mmHg assuming a right atrial pressure of 3 mm Hg. The left atrial size is normal. Right atrial size is normal. There is no significant valvular heart disease. The aortic root is normal size. Brief History This is a 60-year-old male with history of coronary disease as per the patient. He states that back in June 2014 he proceeded with a nuclear stress test at [facility] which I do not have access to the report. As per the patient he "flunked the test" it was taken immediately to the emergency room. Apparently he did not have insurance he deferred a cardiac catheterization until September 2014. According to the patient he had a thrombus and was placed on Plavix. He did not receive any balloon angioplasty or stent as per the patient. The patient sees Dr. Carlson at [facility]. The patient has had complaints of recent episodes of chest discomfort. His metoprolol was increased to 50 mg twice a day. Apparently the patient recently had a upper respiratory infection for several weeks. The patient was at work yesterday started to have significant chest pressure. The patient took some aspirin and nitroglycerin and eventually after 45 minutes of resting his chest pain improved but he was still night at baseline. He decided to present to the emergency room at [facility]. In the emergency room his EKG revealed rapid atrial fibrillation with a heart rate about 150 bpm with some minor [address] depressions. The patient was placed on intravenous diltiazem and eventually converted back to sinus rhythm around 3:30 this morning. Since then he has not had any recurrence episodes of chest pain and he feels pretty much back to his baseline. His severe troponins were negative. His EKG now shows normal sinus rhythm with normal ST segments. Hospital Course Mr. Sal is a 60 year old male with multiple CAD risk factors including HTN, HLD, PVD here for acute substernal chest pain that has since resolved. Patient is admitted for new onset Afib w/ RVR - with conversion to SR #Atrial fibrillation with RVR, new onset, present on admission, stable Likely multifactorial, but risk factors include history of alcohol and cocaine abuse, CAD, abrupt metoprolol withdrawal, multiple cardiac risk factors , iron deficiency anemia, and recent illness Troponin negative, monitored on tele and is s/p Diltiazem gtt per protocol that was started in the ED upon admission, now discontinued CHADSVasc score = 2, recommend anticoagulation other than his daily 81mg ASA , currently on Heparin SQ for DVT prophylaxis but after discussion with cardiology, pts anemia should have w/u in outpt setting prior to initiation. Will start/add plavix onto regimen which pt was supposed to be taking along with asa since 08/2014 after his prior cath Echo findings as listed Cardiology consultation obtained. Dr. Fry was kind enough to see the patient and his recommendations are as follows: "1. Atrial fibrillation with rapid ventricular response Plan: Resolved. The patient has been started back on metoprolol tartrate 50 mg twice a day. In light of his anemia I am a little bit concerned about putting him on anticoagulation. I think for now I would recommend aspirin and Plavix which he currently still has at home. The patient will need to discuss with Dr. Carlson about long-term anticoagulation but may consider GI workup prior to starting anticoagulation given his history of anemia. Supposedly his anemia is secondary to iron deficiency but apparently he is not compliant with ferrous sulfate medication. I suspect that his chest pain was most likely secondary to his rapid atrial fibrillation. His history does not indicate that he is currently having acute coronary syndrome. His troponins have been negative and his EKG abnormalities have resolved. Patient states that he feels pretty much back to his baseline. I will like to obtain his coronary angiogram report from [facility] and if his coronaries are indeed normal or has very minimal coronary artery disease, then I think the patient may be discharged home. However if there is moderate to severe disease than patient might benefit from a repeat ischemic evaluation. Dr. De León will be back on cardiology service tomorrow morning. We discussed briefly about long- term management for his atrial fibrillation." After speaking with Alivia De León on the day of discharge - it was decided that pt f/u with his prior librarian as there was no prev sight of intervention on his previous cath, along with present neg enzymes/ekg #CAD s/p cath in 2014, POA Continue patient's home medications i.e. aspirin and Plavix along with metoprolol(patient has not taken metoprolol for approximately 3 days) - restarted upon discharge #Iron Deficiency Anemia, chronic, present on admission Patient is on iron but does not take it regularly, H/H 9. with an MCV of 69.2; denies blood loss from anywhere. - strongly encouraged to continue taking iron - continued at discharge and PCP to continue iron studies w/u (ordered today as add on test) hg remained relatively stable Iron Sulfate 325mg BID #Hypertension, POA, stable Continue amlodipine 5mg, but consider switching to Lisinopril for maximal benefit Restart Metoprolol 50mg BID - off dilt drip #Hyperlipidemia, POA, stable Will switch to Atorvastatin QHS Lipid panel pending #Hyperglycemia, POA Patient denies history of diabetes HA1c ordered #Tobacco Dependence, POA Patient reports 1 ppd since he was [age], total of 40 pack years Cessation advised Nicotine patch PRN #H/o Drug Abuse and Alcohol Abuse Cocaine and Alcohol abuse could contribute to an Cardiomyopathy Clean and Sober x 10 years Discussed with patient and he would like HIV screening and results are pending Pt was made an appt for an initial visit with the [facility] residency clinic on 05/09 at 4:20p with Dr. Elise Exam Vital Signs (Last) Date Time Temp Pulse Resp B/P Pulse Ox O2 Delivery O2 Flow Rate FiO2 05/04/16 09:31 36.7 73 16 149/87 98 Room Air Exam General: Patient is in no apparent distress. He is resting comfortably supine in bed. HEENT: Head is atraumatic normocephalic. Eyes: Pupils are equally round and reactive to light and accommodation. Extraocular muscles are intact. Sclera are white anicteric. Subconjunctival mucosa is pink. Ears and nose are unremarkable. Oropharynx: There is no mucosal lesions, there is no thrush, there is no pharyngitis. Neck: Is supple, there are no nodes, or masses or tenderness. Chest: Is clear to auscultation and percussion. There are no rales, rhonchi, wheezes or rubs. Heart: Rate, rhythm is regular. There is no murmur, rub or gallop. Abdomen: Good bowel sounds are present. Abdomen is soft, nontender, no organomegaly or masses were appreciated. Extremities: Are symmetrical and well perfused. There is no edema, there is no cellulitis, no rash. Neurologic: There are no focal neurological deficits. Cranial nerves II through XII are intact. There are no sensory or motor deficits. Psychiatric: Patients mood is calm and shows no sign of agitation. Test 05/02/16 19:46 05/02/16 20:41 05/03/16 05:12 05/03/16 08:30 Prothrombin Time 9.6sec (8.1-12.5) Prothromb Time International Ratio 0.90ratio Activated Partial Thromboplast Time 25.4sec (22.8-33.0) Magnesium Level 2.1mg/dL (1.6-2.6) Total Bilirubin 0.2mg/dL (0.0-1.2) Aspartate Amino Transf (AST/SGOT) 20U/L (0-50) Alanine Aminotransferase (ALT/SGPT) 16U/L (0-44) Alkaline Phosphatase 67U/L (25-160) Total Protein 7.0g/dL (6.4-8.4) Albumin 4.0g/dL (3.4-5.0) Thyroid Stimulating Hormone (TSH) 2.020uIU/mL (0.450-4.500) Hold Choi Top Tube Received (Received) Hold Urine Received (Received) Triglycerides Level 446mg/dL (0-149) Cholesterol Level 147mg/dL (100-199) LDL Cholesterol, Calculated 29.800mg/dL (0-99) VLDL Cholesterol 89.200mg/dL HDL Cholesterol 28mg/dL (>39) Cholesterol/HDL Ratio 5.25 (0.0-4.4) HIV (1&2) Ag and Ab, 4th Generation Non reactive (Non Reactive) Troponin T < 0.010ug/L (0.0-0.011) Test 05/04/16 07:33 White Blood Count 7.3th/mm3 (3.8-10.1) Red Blood Count 4.38mil/mm3 (4.40-5.80) Hemoglobin 8.9g/dL (13.8-17.2) Hematocrit 30.5% (41.0-50.0) Mean Corpuscular Volume 69.6fL (81-100) Mean Corpuscular Hemoglobin 20.3pg (27.0-35.0) Mean Corpuscular Hemoglobin Concent 29.2% (32.0-37.0) Red Cell Distribution Width 16.1% (12.3-15.4) Platelet Count 456bil/L (150-400) Neutrophils (%) (Auto) 61.6% (40-74) Lymphocytes (%) (Auto) 26.0% (14-46) Monocytes (%) (Auto) 9.6% (4-12) Eosinophils (%) (Auto) 2.5% (0-5) Basophils (%) (Auto) 0.3% (0-3) Sodium Level 141mEq/L (134-144) Potassium Level 4.4mEq/L (3.5-5.2) Chloride Level 106mEq/L (97-108) Carbon Dioxide Level 25mmol/L (18-29) Blood Urea Nitrogen 14mg/dL (6-24) Creatinine 0.68mg/dL (0.76-1.27) Estimat Glomerular Filtration Rate 127mL/min (>59) Glucose Level 103mg/dL (60-99) Calcium Level 8.8mg/dL (8.5-10.1) Discharge Medications Discharge Medications Amlodipine (Amlodipine) 5 Mg Tablet 5 MG PO DAILY (Reported) Aspirin (Aspirin) 81 Mg Tablet 81 MG PO DAILY (Reported) Atorvastatin Calcium (Atorvastatin Calcium) 40 Mg Tablet 40 MG PO HS Prescribed by: ALLA MCKINLEY DO Clopidogrel (Clopidogrel) 75 Mg Tablet 75 MG PO DAILY Prescribed by: ALLA MCKINLEY DO Metoprolol Tartrate (Metoprolol Tartrate) 50 Mg Tablet 50 MG PO BID (Reported) Multivits-Min/FA/Lycopene/Lut (Centrum Silver Tablet) 1 Each Tablet 1 EACH PO DAILY (Reported) Additional med instructions Pt to be discharged on aspirin 81mg and plavix 75mg along with other continued home medications Followup Plan Follow-up plan as above Discharge Diet: Low fat, Low Sodium, Heart Healthy Discharge Activity: No restrictions Patient Instructions Please continue aspirin 81mg, plavix 75mg and metoprolol 50mg twice daily along with Atorvastatin for cholesterol, please stop simvastatin while taking atorvastatin. Follow up with Dr. Carlson regarding anticoagulation in setting of your anemia. I recommend establishing care with a PCP, I have asked our staff to see if we can get you into the [facility] here at [facility] Follow-up Provider: Guido Carlson MD Follow-up with PCP in: 1 week Time spent 50 minutes spent wiht discharge and coordination of care copies to: Elizabeth Elise DO; Guido Carlson MD, David DO May 04, 2016 13:43
--- NOTE | 2016-05-04 15:11 | NUR ---
Discharge Reviewed d/c instructions with pt including care notes and new prescriptions, pt signed and given originals, copies to chart. IV d/c intact, tele removed. VS stable/ normal at time of d/c. All belongings packed by pt and taken with him. Pt walked off unit on foot accompanied by with all belongings.
[2016-05-04 15:45] LABS: Unsaturated Iron Binding 416.7 ug/dL
== END 2016-05-04 15:17 | disposition home or self-care (01) | DRG 310 ==
LOC: SED 19:06 → MPC 21:32
PROVIDERS: ADMIT Hospitalist; ATTEND Hospitalist
DX: I48.91 Unspecified atrial fibrillation (principal); I25.10 Atherosclerotic heart disease of native coronary artery without angina pectoris; I10 Essential (primary) hypertension; E78.5 Hyperlipidemia, unspecified; F17.210 Nicotine dependence, cigarettes, uncomplicated; R73.9 Hyperglycemia, unspecified; D50.8 Other iron deficiency anemias; F10.21 Alcohol dependence, in remission; F14.21 Cocaine dependence, in remission

== ENCOUNTER 2016-09-02 15:39 | Emergency (ER) | payer SELFPAY ==
[~2016-09-02] VITALS: Ht 185.4 cm; Wt 102.3 kg
[~2016-09-02 15:39] MED LIST changes: -AMLO2.5T PO; +AMLO5TAB2 PO; +ASPI-973 PO; +ATOR40TA69 PO; +CLOP75TA28 PO; -CLOP75TA3 PO; +FERR-83 PO; -METO25TA6 PO; +METO50TA3 PO; -SIMV20TA4 PO
[2016-09-02 15:55] VITALS: BP 127/77; PULSE 88; RESP 16; O2SAT 97
--- NOTE | 2016-09-02 16:08 | ED.REPORT ---
HPI-General Illness Date of Service September 02, 2016 ED Provider: Andrés Avila MD Pt is a 61 y/o male w/ a hx of paroxysmal A-fib, HTN, CAD on Plavix for an unknown reason, presenting to the ED c/o N/V/D onset 3 days ago. 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 No LOC. He was seen earlier in Urgent Care at which time they did not perform orthostatic vital signs or obtain labs and decided to send him to the ED for full workup. He is out of his Plavix and is not sure why is he taking it or if he should still be taking it. He denies any ongoing symptoms He is unable to fill the prescription because he hasn't been to see a Dr. in many months. At current time, he feels fine. Pt denies CP, SOB, numbness, tingling, weakness, abdominal pain, bloody stool, speech changes , vision changes. He denies any history of stroke or TIA. She seems to believe that he is on Plavix due to his atrial fibrillation though states that last time he got an EKG that he was not in A. fib. He thinks it may be useful to stop his Plavix but is not sure. Nursing Notes Stated Complaint: SICK FOR 3 DAYS Chief Complaint: General Complaint Nursing Notes Reviewed: Yes Allergies: Coded Allergies: No Known Allergies (Unverified , 09/02/16) Scheduled Amlodipine (Amlodipine) 5 Mg Tablet 5 MG PO DAILY Aspirin (Aspirin) 81 Mg Tablet 81 MG PO DAILY Atorvastatin Calcium (Atorvastatin Calcium) 40 Mg Tablet 40 MG PO HS Clopidogrel (Clopidogrel) 75 Mg Tablet 75 MG PO DAILY Ferrous Sulfate (Ferrous Sulfate) 325 Mg Tablet 325 MG PO BID Metoprolol Tartrate (Metoprolol Tartrate) 50 Mg Tablet 50 MG PO BID Multivits-Min/FA/Lycopene/Lut (Centrum Silver Tablet) 1 Each Tablet 1 EACH PO DAILY General Time Seen by MD: 16:06 Chief Complaint Vomiting Hx Obtained From: Patient Arrived By: Walk-in Sudden in Onset?: No Onset Occurred: 3 days ago Symptom Duration: Since onset Severity: Current: No pain currently Severity: Maximum: No pain Past Medical History Past Medical History Right inguinal hernia Hypertension Hyperlipidemia "blood clot in heart" - the pt was placed on Plavix CAD Peripheral vascular disease Liver disease Fracture of ankle, wrist, colladr bone Past Surgical History Cardiac catheter 2015 Family History noncontributory Smoking History Current Every Day Smoker Social History Alcohol Use: Denies alcohol use Other Social History: Local resident Ambulatory Status Independent Review of Systems Full Review of Systems Constitutional: Denies: Chills, Fever Respiratory: Denies: Non-productive cough, Shortness of breath Cardiovascular: Reports: Palpitations, Denies: Chest pain GI: Reports: Diarrhea, Nausea, Vomiting, Denies: Abdominal pain, Bloody/tarry stool, Hematemesis, Hematochezia, Melena Neurologic: Reports: Lightheaded, Syncope (near), Denies: Change LOC, Confusion, Dizziness, Focal weakness, Headache, Numbness , Slurred speech, Spinning sensation, Unable to speak, Vision change, Weakness Complete sys rev & neg: except as marked. Physical Exam Vital Signs Vital Signs Date Time Temp Pulse Resp B/P Pulse Ox O2 Delivery O2 Flow Rate FiO2 09/02/16 18:37 36.7 98 16 147/86 96 Room Air 09/02/16 17:02 98 147/86 96 Room Air 09/02/16 16:50 92 147/86 97 Room Air 09/02/16 16:45 88 137/86 93 Room Air 09/02/16 15:55 36.7 88 16 127/77 97 Room Air Initial VS: Reviewed, Vital signs normal Head / Eyes: Atraumatic, Normocephalic, PERRL Neck: Supple, Non-tender, Full range of motion Respiratory: Breath sounds normal, Clear to auscultation, No respiratory distress Cardiovascular: Regular rate & rhythm, Heart sounds normal, Intact distal pulses Abdomen / GI: Soft, Non-tender, No guarding, No rebound, No distention Extremities: Vascular intact, Neuro intact, No swelling, No tenderness Skin: Warm, Dry, No cyanosis Psychiatric: Mood/affect normal, Behavior normal, Normal thought content ENT: Atraumatic, Airway patent Mouth: Positive: Mucous membranes dry (mild) Neurologic: Oriented X3, Speech NL, No motor deficits, No sensory deficits, CN II - XII intact, Cerebellar NL, Memory NL No pronator drift Interpretation & Diagnostics Lab Results Interpretation Result Diagram: 09/02/16 1645 09/02/16 1645 Test 09/02/16 16:45 White Blood Count 6.8th/mm3 (3.8-10.1) Red Blood Count 5.00mil/mm3 (4.40-5.80) Hemoglobin 13.5g/dL (13.8-17.2) Hematocrit 40.8% (41.0-50.0) Mean Corpuscular Volume 81.6fL (81-100) Mean Corpuscular Hemoglobin 27.0pg (27.0-35.0) Mean Corpuscular Hemoglobin Concent 33.1% (32.0-37.0) Red Cell Distribution Width 16.1% (12.3-15.4) Platelet Count 248bil/L (150-400) Neutrophils (%) (Auto) 70.2% (40-74) Lymphocytes (%) (Auto) 11.4% (14-46) Monocytes (%) (Auto) 17.8% (4-12) Eosinophils (%) (Auto) 0.1% (0-5) Basophils (%) (Auto) 0.4% (0-3) Prothrombin Time 9.8sec (8.1-12.5) Prothromb Time International Ratio 0.92ratio Sodium Level 135mEq/L (134-144) Potassium Level 4.1mEq/L (3.5-5.2) Chloride Level 101mEq/L (97-108) Carbon Dioxide Level 18mmol/L (18-29) Blood Urea Nitrogen 23mg/dL (8-27) Creatinine 0.90mg/dL (0.76-1.27) Estimat Glomerular Filtration Rate 91mL/min (>59) Glucose Level 103mg/dL (60-99) Calcium Level 9.0mg/dL (8.5-10.1) Magnesium Level 2.3mg/dL (1.6-2.6) Total Bilirubin 0.2mg/dL (0.0-1.2) Aspartate Amino Transf (AST/SGOT) 24U/L (0-50) Alanine Aminotransferase (ALT/SGPT) 18U/L (0-44) Alkaline Phosphatase 79U/L (25-160) Troponin T < 0.010ug/L (0.0-0.011) Pro-B-Type Natriuretic Peptide 55.11pg/mL (0-210) Total Protein 7.1g/dL (6.4-8.4) Albumin 3.9g/dL (3.4-5.0) Lipase 17U/L (13-60) Hold Choi Top Tube Received (Received) ECG Interpretation ECG Interpretation: Sinus rhythm rate 88 Abnormal R wave progression Time: 16:38 Interpreted by: ED physician Normal ECG Interpretation: Normal axis, Normal intervals, No change from prior ECGs (05/03/16) X-Ray Chest Interpretation Chest Xray Interpretation: IMPRESSION: No acute pulmonary process. Dictated by: Mel Arrieta M.D. on 09/02/2016 at 18:06 Approved by: Mel Arrieta M.D. on 09/02/2016 at 18:07 View: Portable, AP & lat Interpretation / Wet Read by: Interpret - Radiologist Re-Eval/Medical Decision Med Decision/Clinical Course Pt is a 61 y/o male w/ a hx of paroxysmal A-fib, HTN, CAD on Plavix for an unknown reason, presenting to the ED c/o N/V/D onset 3 days ago. 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 No LOC. He was seen earlier in Urgent Care at which time they did not perform orthostatic vital signs or obtain labs and decided to send him to the ED for full workup. He is out of his Plavix and is not sure why is he taking it or if he should still be taking it. He denies any ongoing symptoms He is unable to fill the prescription because he hasn't been to see a Dr. in many months. At current time, he feels fine. Pt denies CP, SOB, numbness, tingling, weakness, abdominal pain, bloody stool, speech changes , vision changes. He denies any history of stroke or TIA. She seems to believe that he is on Plavix due to his atrial fibrillation though states that last time he got an EKG that he was not in A. fib. He thinks it may be useful to stop his Plavix but is not sure. Here in the emergency Department the patient is hemodynamically stable and afebrile. Orthostatic vital signs are negative though he does report feeling lightheaded when he stands up. He has no lateralizing neurologic findings. EKG was obtained and interpreted by myself as documented above. Of note he is not in atrial fibrillation. CXR: Obtained, reviewed and interpreted by myself shows no evidence of infiltrates, effusions or pneumothorax. Cardiac and mediastinal silhouette normal. No bony or soft tissue abnormalities. Laboratory studies including CBC, CMP and troponin were all negative. Overall presentation is most consistent with orthostatic lightheadedness as he does appear dehydrated and reported that he felt dizzy upon standing up. Furthermore he has had recent GI illness with nausea, vomiting and diarrhea also reporting diagnosis of dehydration. Here he was treated with Zofran and IV fluids and had symptom improvement. At this time I see no evidence of acute coronary syndrome is low risk for pulmonary embolism. I see no reason why he would be on Plavix based upon our discussion. I did review the note stating that he is put on Plavix due to underlying coronary artery disease though he is also already on aspirin. He denies having any stents and he is not in atrial fibrillation [place] Plavix generally indicated for prophylaxis in atrial fibrillation. He will continue to hold his Plavix and follow-up closely with his primary care physician about whether he should continue this. He will continue daily aspirin. Prior to discharge follow-up and return precautions were reviewed in detail with the patient who verbalized understanding and agreement with the plan. The patient was discharged in stable condition. Time of Eval: 18:21 Patient Status: Condition improved, Moderate relief Re-Evaluation/Progress Note: Pt rechecked. Informed pt of plan for treatment. Pt understands and agrees with plan for treatment. F/U instructions and RTER warnings given. All questions addressed. Counseled Regarding: Diagnosis, Lab results, Need for follow-up, When/why to return to ED Discharge & Departure Primary Impression: Nausea, vomiting, and diarrhea Additional Impressions: Noncompliance with medication regimen Dehydration Near syncope Disposition: Home Discharge Condition All VS Reviewed: Yes Condition: Stable Patient Instructions: Dehydration (ED) Additional Instructions: Thank you for seeking care at the emergency room. It is difficult for us to make definitive diagnoses in the ED but we believe that you are experiencing dehydration. Our primary goal today in the ED was to evaluate you for any life-threatening conditions. Your evaluation was reassuring. Your labs, chest x-ray, and EKG today were all normal. Take aspirin daily. Stop your Plavix until you meet with a doctor. You should follow-up with your primary doctor on Sunday. One has been referred to you. Call to set up an appointment. You should return to the ED immediately if you develop fevers, persistent vomiting, shortness of breath, chest pain, lightheadedness, weakness or any other concerning signs or symptoms. Thank you for letting us partake in your care today. Referrals: Deandre Hagan Attestation Portions of this note were transcribed by Nixon Simeon. I, Dr. Avila personally performed the history, physical exam and medical decision-making; I reviewed and confirmed the accuracy of the information in the transcribed note. Signed by Giuseppe Panchal, 09/02/16 1632 copies to: Deandre Hagan Beck O MD September 02, 2016 16:08 NIXON SIMEON September 02, 2016 16:16
[2016-09-02] MEDS ORDERED: 0.9% Sodium Chloride 1,000 ML IV ONE (16:09)
[2016-09-02] MEDS ORDERED: Ondansetron 2 mg/mL 2 mL Inj IVPUSH ONE (16:20)
[2016-09-02 16:45] VITALS: BP 137/86; PULSE 88; O2SAT 93
[2016-09-02 16:50] VITALS: BP 147/86; PULSE 92; O2SAT 97
[2016-09-02 17:02] VITALS: BP 147/86; PULSE 98; O2SAT 96
[2016-09-02 17:10] LABS: BASOPHILS % (AUTO) 0.4 % (0-3); EOSINOPHILS % (AUTO) 0.1 % (0-5); MONOCYTES % (AUTO) 17.8 % (4-12); Mean Corpuscular Volume 81.6 fL (81-100); NEUTROPHILS % (AUTO) 70.2 % (40-74); Platelet Count 248 bil/L (150-400)
[2016-09-02 17:14] LABS: INR 0.92 ratio
[2016-09-02 17:30] LABS: TROPONIN T < 0.010 ug/L (0.0-0.011)
[2016-09-02 17:38] LABS: Lipase 17 U/L (13-60); Magnesium 2.3 mg/dL (1.6-2.6)
--- NOTE | 2016-09-02 18:08 | DRSVH ---
PROCEDURE: X-RAY CHEST, TWO VIEWS ([id number]) INDICATIONS: CHEST PAIN TECHNIQUE: 2 views of the chest were acquired. COMPARISON: [facility], CR, CHEST 1VW (PORTABLE), 06/30/2014, 9:06. FINDINGS: Surgical changes and devices: None. Lungs and pleura: No pleural effusions or pneumothorax. Lungs are clear. Mediastinum: Mediastinal contours are normal. Heart size is normal. Bones and chest wall: No suspicious bony abnormalities. Soft tissues appear unremarkable. IMPRESSION: No acute pulmonary process. Dictated by: Mel Arrieta M.D. on 09/02/2016 at 18:06 Approved by: Mel Arrieta M.D. on 09/02/2016 at 18:07
[2016-09-02 18:37] VITALS: BP 147/86; PULSE 98; RESP 16; O2SAT 96
[2016-09-02 20:25] LABS: APPEARANCE,URINE CLEAR (CLEAR,HAZY); COLOR,URINE YELLOW (YELLOW); OCCULT BLOOD,URINE TRACE (NEGATIVE); PH,URINE 5.5 (5.0-8.0); UROBILINOGEN,URINE NORMAL (NORMAL)
== END 2016-09-02 18:38 | disposition home or self-care (01) ==
LOC: SED 15:39
DX: R11.2 Nausea with vomiting, unspecified (principal); E86.0 Dehydration; R19.7 Diarrhea, unspecified; R55 Syncope and collapse; I11.9 Hypertensive heart disease without heart failure; I48.0 Paroxysmal atrial fibrillation; I25.10 Atherosclerotic heart disease of native coronary artery without angina pectoris; E78.5 Hyperlipidemia, unspecified; F17.200 Nicotine dependence, unspecified, uncomplicated; Z91.14 Patient's other noncompliance with medication regimen; Z79.82 Long term (current) use of aspirin; Z95.5 Presence of coronary angioplasty implant and graft
CPT/HCPCS: 36415; 71020; 80053; 81000; 83690; 83735; 83880; 84484; 85025; 85610; 93005; 96361; 96374; 99285; J2405; J7030

== ENCOUNTER 2016-09-04 10:46 | Emergency (ER) | payer SELFPAY ==
[~2016-09-04] VITALS: Ht 185.4 cm; Wt 101.1 kg
[2016-09-04 10:49] VITALS: BP 137/87; PULSE 76; RESP 18; O2SAT 97
--- NOTE | 2016-09-04 11:29 | ED.REPORT ---
HPI-General Illness Date of Service September 04, 2016 ED Provider: Amari Holland MD The patient is a 61 year old male w/ a hx of paroxysmal A-fib, HTN, CAD on Plavix who presents to the ED due to urinary retention onset yesterday. Associated symptoms include dizziness, intermittent vomiting, nausea, and diarrhea for the past week. Yesterday, he had a sandwich and a banana for lunch , became very bloated and had an episode of diarrhea. His last vomited 2 days ago. Last Sunday, he went to Urgent Care with nausea and vomiting and was sent to [facility] with concern for dehydration. He was given fluids with resultant improvement of symptoms. He denies back pain, fever and hematochezia. Pt drove himself to the ED today and is amble to ambulate with a steady gait. Nursing Notes Stated Complaint: UNABLE TO URINATE Chief Complaint: Male Abdominal Pain Nursing Notes Reviewed: Yes Allergies: Coded Allergies: No Known Allergies (Unverified , 09/02/16) Scheduled Amlodipine (Amlodipine) 5 Mg Tablet 5 MG PO DAILY Aspirin (Aspirin) 81 Mg Tablet 81 MG PO DAILY Atorvastatin Calcium (Atorvastatin Calcium) 40 Mg Tablet 40 MG PO HS Clopidogrel (Clopidogrel) 75 Mg Tablet 75 MG PO DAILY Ferrous Sulfate (Ferrous Sulfate) 325 Mg Tablet 325 MG PO BID Metoprolol Tartrate (Metoprolol Tartrate) 50 Mg Tablet 50 MG PO BID Multivits-Min/FA/Lycopene/Lut (Centrum Silver Tablet) 1 Each Tablet 1 EACH PO DAILY Tamsulosin (Flomax) 0.4 Mg Capsule 0.4 MG PO DAILY General Time Seen by MD: 11:15 Chief Complaint Other (urinary retention) Hx Obtained From: Patient Arrived By: Walk-in Sudden in Onset?: Yes Onset Occurred: Yesterday Symptom Duration: Since onset Severity: Current: No pain currently Recent Healthcare: Recent doctor visit Similar Sx Previous: Yes Past Medical History Past Medical History Right inguinal hernia Hypertension Hyperlipidemia "blood clot in heart" - the pt was placed on Plavix CAD Peripheral vascular disease Liver disease Fracture of ankle, wrist, colladr bone Past Surgical History Cardiac catheter 2014 Family History noncontributory Smoking History Current Every Day Smoker Social History Alcohol Use: Denies alcohol use Other Social History: Local resident Ambulatory Status Independent Review of Systems Full Review of Systems Constitutional: Denies: Fever GI: Reports: Diarrhea, Nausea, Vomiting, Denies: Hematochezia Male: Reports Urination decreased Complete sys rev & neg: except as marked. Physical Exam Vital Signs Vital Signs Date Time Temp Pulse Resp B/P Pulse Ox O2 Delivery O2 Flow Rate FiO2 09/04/16 12:52 70 16 135/83 96 Room Air 09/04/16 10:49 36.4 76 18 137/87 97 Initial VS: Reviewed Head / Eyes: Atraumatic, Normocephalic ENT: Mucous membranes moist, Conjunctiva normal, No scleral icterus Neck: Supple, Non-tender, Full range of motion Respiratory: Breath sounds normal, Clear to auscultation, No respiratory distress Cardiovascular: Regular rate & rhythm, Heart sounds normal, Intact distal pulses Abdomen / GI: Soft, Non-tender, No guarding, No rebound Back: No CVA tenderness Extremities: Vascular intact, Neuro intact, No swelling, No tenderness General/Constitutional: Awake, Alert, Cooperative, Not toxic appearing Abdomen: Soft, Non-tender, No guarding, No rebound Prostate: Positive: Enlarged (mildly) Interpretation & Diagnostics Lab Results Interpretation Result Diagram: 09/04/16 1139 09/04/16 1150 Test 09/04/16 11:39 09/04/16 11:50 White Blood Count 5.7th/mm3 (3.8-10.1) Red Blood Count 4.87mil/mm3 (4.40-5.80) Hemoglobin 13.3g/dL (13.8-17.2) Hematocrit 39.6% (41.0-50.0) Mean Corpuscular Volume 81.3fL (81-100) Mean Corpuscular Hemoglobin 27.3pg (27.0-35.0) Mean Corpuscular Hemoglobin Concent 33.6% (32.0-37.0) Red Cell Distribution Width 15.6% (12.3-15.4) Platelet Count 232bil/L (150-400) Neutrophils (%) (Auto) 55.7% (40-74) Lymphocytes (%) (Auto) 22.3% (14-46) Monocytes (%) (Auto) 20.4% (4-12) Eosinophils (%) (Auto) 0.7% (0-5) Basophils (%) (Auto) 0.7% (0-3) Urine Color Yellow (YELLOW) Urine Appearance Hazy (CLEAR,HAZY) Urine pH 6.0 (5.0-8.0) Urine Specific [place] 1.025 (1.003-1.035) Urine Protein 30mg/dL (NEG,TRACE) Urine Glucose (UA) Negativemg/dL (NEGATIVE) Urine Ketones Negativemg/dL (NEGATIVE) Urine Occult Blood Trace (NEGATIVE) Urine Nitrite Negative (NEGATIVE) Urine Bilirubin Negative (NEGATIVE) Urine Urobilinogen Normalmg/dL (NORMAL) Urine Leukocyte Esterase Negative (NEGATIVE) Urine RBC 3-10/hpf (0-2) Urine WBC 0-5/hpf (0-5) Urine Epithelial Cells Occasional/hpf (NONE-MOD) Urine Crystals None seen (NONE SEEN) Urine Bacteria None/hpf (NONE-FEW) Urine Hyaline Casts None/lpf (NONE) Urine Granular Casts None seen (NONE SEEN) Urine Waxy Casts None seen (NONE SEEN) Urine Red Blood Cell Casts None seen (NONE SEEN) Urine White Blood Cell Casts None seen (NONE SEEN) Urine Mucus Present (None Seen) Urine Trichomonas None seen (NONE SEEN) Urine Yeast None (NONE SEEN) Urinalysis Comment None Urine Culture Reflexed Not indicated Sodium Level 137mEq/L (134-144) Potassium Level 3.7mEq/L (3.5-5.2) Chloride Level 101mEq/L (97-108) Carbon Dioxide Level 24mmol/L (18-29) Blood Urea Nitrogen 11mg/dL (8-27) Creatinine 0.77mg/dL (0.76-1.27) Estimat Glomerular Filtration Rate 110mL/min (>59) Glucose Level 101mg/dL (60-99) Calcium Level 8.8mg/dL (8.5-10.1) Total Bilirubin 0.2mg/dL (0.0-1.2) Aspartate Amino Transf (AST/SGOT) 28U/L (0-50) Alanine Aminotransferase (ALT/SGPT) 20U/L (0-44) Alkaline Phosphatase 76U/L (25-160) Total Protein 6.3g/dL (6.4-8.4) Albumin 3.8g/dL (3.4-5.0) Re-Eval/Medical Decision Med Decision/Clinical Course 61-year-old male with resolving GI illness presenting with difficulty voiding. He reports this is been going on for months. He reports it is worse last couple days. He denies any abdominal pain. Denies any nausea vomiting diarrhea which is not last couple days which has resolved today. Bladder scan is negative. He was able to void here. There is no evidence of infection. His labs are stable with no kidney injury. Prostate is mildly enlarged. Likely decreased urine output due to dehydration from recent GI illness. Also possible BPH component. Patient recommended to hydrate home. Give prescription for Flomax. Return precautions given. Counseled Regarding: Diagnosis, Lab results, Need for follow-up, When/why to return to ED Discharge & Departure Primary Impression: Gastroenteritis Additional Impression: Urinary retention Disposition: Home Discharge Condition All VS Reviewed: Yes Condition: Stable Additional Instructions: Thank you for entrusting us with your care today. Your labs are normal. I suspect your symptoms are due to dehydration. Drink plenty of fluids and get lots of rest. You can take Simethicone for gas. Follow up with your primary care physician in the next few days. Return to the Emergency Department for any new or worsening symptoms including fever, abdominal or chest pain, weakness, blood in your urine or stool. I hope you feel better soon, enjoy the sunshine! Referrals: [facility] (PCP) [facility] Scribe Attestation Portion of this note were transcribed by Libertad Cervantes. I, Dr. Holland, personally performed the history, physical exam, and medical decision-making: I reviewed and confirmed the accuracy for the information in the transcribed note. Signed by: yolis Machado, 09/04/16 1400 copies to: [facility] Amari Holland MD September 04, 2016 11:29 Libertad Cervantes September 04, 2016 11:39
[2016-09-04] MEDS ORDERED: 0.9% Sodium Chloride 1,000 ML IV ONE (11:39)
[2016-09-04] MEDS ORDERED: Ondansetron 2 mg/mL 2 mL Inj IVPUSH PRN (11:40)
[2016-09-04 11:59] LABS: BASOPHILS % (AUTO) 0.7 % (0-3); EOSINOPHILS % (AUTO) 0.7 % (0-5); MONOCYTES % (AUTO) 20.4 % (4-12); Mean Corpuscular Hemoglobin 27.3 pg (27.0-35.0); Mean Corpuscular Volume 81.3 fL (81-100); NEUTROPHILS % (AUTO) 55.7 % (40-74); Platelet Count 232 bil/L (150-400)
[2016-09-04 12:14] LABS: APPEARANCE,URINE HAZY (CLEAR,HAZY); COLOR,URINE YELLOW (YELLOW); OCCULT BLOOD,URINE TRACE (NEGATIVE); UROBILINOGEN,URINE NORMAL (NORMAL)
[2016-09-04] MEDS ORDERED: TAMS0.4C98 PO (12:44)
[2016-09-04 12:52] VITALS: BP 135/83; PULSE 70; RESP 16; O2SAT 96
== END 2016-09-04 12:53 | disposition home or self-care (01) ==
LOC: SED 10:46
DX: K52.9 Noninfective gastroenteritis and colitis, unspecified (principal); R33.9 Retention of urine, unspecified; I10 Essential (primary) hypertension; E78.5 Hyperlipidemia, unspecified; I25.10 Atherosclerotic heart disease of native coronary artery without angina pectoris; F17.200 Nicotine dependence, unspecified, uncomplicated; Z79.82 Long term (current) use of aspirin; Z79.899 Other long term (current) drug therapy